=== PATIENT | male | born 1970 | race Caucasian/White ===

== ENCOUNTER 2024-07-08 08:32 | Day surgery (SDC) | payer OTHER ==
[~2024-07-08] VITALS: Ht 188 cm; Wt 104.6 kg
[2024-07-08] VITALS (10 sets, daily range): BP systolic 113–136; BP diastolic 69–79; PULSE 45–50; TEMP 97.6
[~2024-07-08 08:32] MED LIST: 1/2 NS 1,000 ML IV SCH
[2024-07-08] MEDS ORDERED: LEXAPRO20 MG PO (09:50)
[2024-07-08] MEDS ORDERED: LIPITOR 80MG80 MG PO (09:50)
[2024-07-08] MEDS ORDERED: ASPIRIN 81M81 MG/TA2 PO (09:50)
[2024-07-08 09:53] LABS: HEMATOCRIT 41.7 % (42.0-52.0); HEMOGLOBIN 14.2 g/dl (13.5-18.0); MEAN CELL VOLUME 97 fl (80.0-100.0); MEAN CORPUSCULAR HEMOGLOBIN 33 pg (27-31); MEAN CORPUSCULAR HGB CONC 34 g/dl (33.0-37.0); MEAN PLATELET VOLUME 9.8 fl (7.4-10.4); PLATELET COUNT 185 K/mm3 (130-400); RED BLOOD COUNT 4.32 M/mm3 (4.20-5.60); REDCELL DISTRIBUTION WIDTH-CV 12.3 % (11.5-14.5)
[2024-07-08 09:59] LABS: PROTHROMBIN TIME 10.9 SECONDS (9.7-12.8)
[2024-07-08 10:01] LABS: PARTIAL THROMBOPLASTIN TIME 29.5 SECONDS (26.0-37.0)
[2024-07-08 10:09] LABS: CREATININE, serum 0.85 mg/dL (0.72-1.25); POTASSIUM 4.2 mEq/L (3.5-4.5)
--- NOTE | 2024-07-08 10:32 | NUR ---
Initial visit; Patient thanked [facility] for looking in on him. He came from [place] and feels confident in his physician here. [facility] offered encouragement and prayer for a successful 'procedure' and rapid and thorough healing. 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
--- NOTE | 2024-07-08 11:29 | NUR ---
SEE MERGE FOR PROCEDURE DOCUMENTATION
[2024-07-08] MEDS ORDERED: Nitroglycerin 2% Topical Oint 1 GM UD TD SCH (11:32)
[2024-07-08] MEDS ORDERED: Heparin 1,000 UNITS/ML 10 ML Multi-Dose VIAL IV SCH (11:55)
[2024-07-08] MEDS ORDERED: Midazolam 2 MG/2 ML VIAL IV SCH (11:56)
[2024-07-08] MEDS ORDERED: fentaNYL 50 MCG/ML 2 ML VIAL IV SCH (11:57)
[2024-07-08] MEDS ORDERED: niCARdipine (Cath Lab) 100 MCG/ML 10 ML VIAL INCOR SCH (11:58)
[2024-07-08] MEDS ORDERED: Iohexol 350 - 100 ML VIAL INCOR ONE (11:59)
--- NOTE | 2024-07-08 12:13 | NUR ---
PATIENT ALERT AND ORIENTED, DENIES PAIN. PT TRANSFERRED TO BED VIA SLIDE AND POSITIONED FOR COMFORT. VSS. TRANSPORTED TO [facility], VITAL SIGNS TAKEN ON ARRIVAL. RIGHT RADIAL SITE REMAINS CDI. TRANSFER OF CARE REPORT TO AVANI YANCEY. PATIENT PROVIDED CALL LIGHT, BED TO LOWEST POSITION, X3 BEDRAILS IN PLACE.
--- NOTE | 2024-07-08 15:32 | NUR ---
PT TOLERATED RECOVERY PERIOD WELL. VS REMAINED WITHIN NORMAL LIMITS. PT WAS ASSISTED TO MAIN LOBBY VIA WHEELCHAIR UPON DISCHARGE AND WAS ACCOMPANIED BY . IV DISCONTINUED. PT VERBALIZED UNDERSTANDING OF DISCHARGE INSTRUCTIONS AND REMAINED FREE FROM ACUTE CONCERNS AND COMPLAINTS. PT TOLERATED PO FOOD AND FLUIDS DURING RECOVERY. RIGHT RADIAL ACCESS SITE REMAINED FREE FROM SIGNS OF BLEEDING AND HEMATOMA. RIGHT RADIAL DRESSING REMAINED CLEAN DRY AND INTACT.
== END 2024-07-08 15:35 | disposition home or self-care (01) ==
LOC: COL.CAR 08:32
PROVIDERS: Internal Medicine Cardiovascular Disease
DX: R94.39 Abnormal result of other cardiovascular function study (principal)
CPT/HCPCS: C1769; J1644; J2250; J2404; J3010; Q9967